=== PATIENT | male | born 1970 | race Caucasian/White ===

== ENCOUNTER 2016-11-30 06:32 | Day surgery (SDC) | payer OTHER ==
[~2016-11-30] VITALS: Ht 188 cm; Wt 108.8 kg
[~2016-11-30 06:32] MED LIST: CARB200 PO; CARB200T16 PO; PROT40TA PO
[2016-11-30] MEDS ORDERED: NS 1000P @30 MLS/HR (KVO) IV SCH (07:00)
[2016-11-30 07:50] VITALS: BP 121/79; PULSE 88; RESP 18; TEMP 98.6; O2SAT 100
[2016-11-30] MEDS ORDERED: IPRA17I INH (08:04)
[2016-11-30] MEDS ORDERED: CARBXR200 PO (08:04)
[2016-11-30] MEDS ORDERED: LISI-515 PO (08:04)
[2016-11-30] MEDS ORDERED: ASPI81TA11 PO (08:04)
[2016-11-30] MEDS ORDERED: VENTAER INH (08:04)
[2016-11-30] MEDS ORDERED: PANT40TA3 PO (08:04)
[2016-11-30] MEDS ORDERED: VENL150C39 PO (08:04)
[2016-11-30] MEDS ORDERED: HEPARIN-NS/PF INJ 500 ML ONE (08:07)
[2016-11-30] MEDS ORDERED: NITROGLYCERIN INJ 5 ML ONE (08:08)
[2016-11-30] MEDS ORDERED: HEPARIN SODIUM - IV 10,000 UNITS/10 ML VIAL ONE (08:08)
[2016-11-30] MEDS ORDERED: MIDAZOLAM HCL 2 MG/2 ML VIAL ONE ×2 (08:08→08:46)
--- NOTE | 2016-11-30 09:28 | CATHPROC ---
[employer] HIS Report Study Information Study Number Admission Scheduled Start Study Start [id number] Nov 30 2016 6:32AM 11/30/2016 Nov 30 2016 8:03AM [place] [facility]iac Catheterization Admit Source Facility Department Other [facility] - Software Administrator Physician and Clinical Staff Initial Abhishek Cohen Line Out Man Nusrat Espinoza RN Line Out Man Julianna Wallace RN Recorder Kaylee Parker,RT(R) Recorder Gerard Thayer RCIS(BS) Scrub Rhona Sow,RATCHET SETTER TECH2 Procedures Performed Procedure Location (Site) Vessel Name Coronary Angiograms LCA Left Coronary Coronary Angiograms RCA Right Coronary L Heart Cath Equipment Time Market Research Interviewer Description Size Mfg Part Number Used/Scraped TRANSDUCER, TRUWAVE [id number] 08:59 CLARK WALLACE * Used W/STOCKCOCK *[id number] *[id number] *[id number] 08:59 [employer] INDUSTRIES PACK, CCL CUSTOM * Used *[id number] 08:59 Codementor SUPPORT, ARTERIAL ADULT 32819 *[id number] Used [id number] 08:59 BioPoly PACER PEN, SKIN DUAL W/ RULER * Used *[id number] BAND, RADIAL COMPRESSION TR [id number] 09:04 [employer] 29CM Used LARGE 29 *[id number] SHEATH, FR6 RADIAL PRELUDE 08:59 [employer] FR 6 [id number] Used EASE 11CM [id number] 08:59 [employer] WIRE, EXCHANGE 260CM 3MMJ 260CM Used *[id number] 08:58 [employer]COMED OMNIPAQUE, 350 MG, 150ML 150ML [id number] Used 08:59 [employer]ED OMNIPAQUE, 350 MG, 150ML 150ML [id number] Used [id number] 08:59 [employer] BLANKET,WARM AIR CCL * Used *[id number] History: Current Medications Medication Dosage/Unit Route Frequency Last Date/Time Taken ASA History: Allergies Allergy Reaction phenytoin FEVER AND RASH methylprednisolone bee venom protein (honey bee) ANAPHYLACTIC SHOCK History: Risk Factors Family History of Hypertension Dyslipidemia Previous NE Previous Heart Failure Premature CAD Yes Yes Yes No No Prior Valve Prior PCI Prior CABG Surgery No No No Cerebrovascular Peripheral Artery Chronic Lung On Dialysis Diabetes Disease Disease Disease No No No Yes No History: Symptoms/Diagnosis Selection Items Chest pain SOB History: Stress Tests Stress or Imaging Studies Performed Yes Standard Exercise Stress Test No Stress Echo No Stress Test SPECT Stress Test SPECT Result Stress Test SPECT Ischemia Risk/Extent Yes Positive Low Stress Test CMR No Cardiac CTA Coronary Calcium Score No No History: Other Current Smoker Method Quit Packs a Day Years Used Pack Years No Cigarettes 4 Years Ago 1 20 20 Labs Hgb (g/dl) Hct (%) WBC (l/cumm) Platelets (thousands) 11.60-17.00 35.00-51.00 4.00-11.00 150.00-450.00 13.7 40.8 4.9 281 Glucose (mg/dl) BUN (mg/dl) Creatinine (mg/dl) BUN:Creatinine (1:x) 74.00-106.00 7.00-18.00 0.50-1.30 10.00-20.00 72 15 1.0 15 Na (meq/l) K (meq/l) 136.00-145.00 3.50-5.10 143 4.3 INR (PTT:PT) 0.90-1.10 0.9 Medication Medication Total Dose (Bolus/Oral) Medication Total Dosage/Unit 1% XYLOCAINE 20 mL FENTANYL 100 mcg HEPARIN 5000 units OXYGEN 2 l/min RADIAL COCKTAIL 5 mL (Bolus) VERSED 4 mg Medications (Bolus/Oral) Medication Time Given Dosage/Unit Administered By Reason FENTANYL 11/30/2016 8:38:39 AM 50 mcg Nusrat Espinoza 50 mcg FENTANYL given in lab by Nusrat Espinoza RN in Left Antecubital via Peripheral IV. VERSED 11/30/2016 8:39:32 AM 2 mg Nusrat Espinoza 2 mg VERSED given in lab by Nusrat Espinoza RN in Left Antecubital via Peripheral IV. 1% XYLOCAINE 11/30/2016 8:45:44 AM 20 mL Abhishek Singletary 20 mL 1% XYLOCAINE given in lab by Abhishek Singletary in Right Radial via Subcutaneous. Ordered by Abhishek Singletary. FENTANYL 11/30/2016 8:46:06 AM 50 mcg Nusrat Espinoza 50 mcg FENTANYL given in lab by Nusrat Espinoza RN in Left Antecubital via Peripheral IV. VERSED 11/30/2016 8:47:11 AM 2 mg Nusrat Espinoza 2 mg VERSED given in lab by Nusrat Espinoza RN in Left Antecubital via Peripheral IV. OXYGEN 11/30/2016 8:53:16 AM 2 l/min Nusrat Espinoza 2 l/min OXYGEN given in lab by Nusrat Espinoza, KONSTANTIN via Nasal. Ordered by Abhishek Singletary. RADIAL COCKTAIL 11/30/2016 8:57:19 AM 5 mL (Bolus) Abhishek Singletary 5 mL (Bolus) RADIAL COCKTAIL given in lab by Abhishek Singletary in Right Radial via Radial. Using [Soluti on Name]. Ordered by Abhishek Singletary. 200 mcg nitro HEPARIN 11/30/2016 8:57:30 AM 5000 units Nusrat Espinoza 5000 units HEPARIN given in lab by Nusrat Espinoza, KONSTANTIN in Left Antecubital via Peripheral IV. Ordered by Abhishek Singletary. Medication (Drip) Medication Time Given Dosage/Unit Concentration/Unit Diluent (ml) Solution IV Solutions 11/30/2016 8:03:26 AM 50 mL (IV) 500 NaCl .9 IV Solutions given in lab by Nusrat Espinoza RN in Left Antecubital via Peripheral IV. Pump/Drip Marquis w using NaCl .9. Initial Case Assessment Cardiovascular HR Rhythm NIBP 87 nsr 121/78 Edema Present Skin color Skin None Normal Warm Circulatory - Right Pulses Dorsalis Pedis Femoral Radial 2 2 1 Scale (0,1,2,3,4,d) Circulatory - Left Pulses Dorsalis Pedis Femoral Radial 2 2 Scale (0,1,2,3,4,d) Neurological State Oriented to time-place- Alert Moves all extremities person Respiration - General Respiration Rate SpO2 (%) (B/min) 12 97 Final Case Assessment Cardiovascular HR Rhythm NIBP Chest Pain 87 nsr 119/75 0 Edema Present Skin color Skin None Normal Warm Circulatory - Right Pulses Dorsalis Pedis Femoral Radial 2 2 1 Scale (0,1,2,3,4,d) Circulatory - Left Pulses Dorsalis Pedis Femoral Radial 2 2 Scale (0,1,2,3,4,d) Neurological State Oriented to time-place- Alert Moves all extremities person Respiration - General Respiration Rate SpO2 (%) (B/min) 12 97 Chronological Log Time Study Chronological Log 8:03:10 Patient arrived via Bed. 8:03:11 Patient Name, D.O.B, / Armband Verified By R.N. 8:03:11 Consent signed by the physician and the patient and verified by the Software Administrator staff. 8:03:16 Pre-op and post- op instructions given; patient acknowledges understanding of instructions. 8:03:18 Allens test performed on the right radial and ulnar artery. 8:03:19 Patient has been NPO for Less than 6Hrs. 8:03:20 Skin Breakdown- 8:03:21 Patient Warmer Placed on the Table. 8:03:25 A # 20 IV was noted in the Antecubital (left). Grade = 0 8:03:26 IV Solutions given in lab by Nusrat Espinoza RN in Left Antecubital via Peripheral IV. Pum p/Drip Flow using NaCl .9. 8:03:27 History and physical on the chart or being dictated. Assessment: Initial Case, HR=87 BPM, Rhythm=nsr, ZFFW=756/78 mmhg, Edema=None, Color=Normal, Sk in = Warm Right Pulses: Terry Ped=2, Femoral=2, Radial=1 8:03:27 Left Pulses: Terry Ped=2, Femoral=2 Neurological: State=Alert, Ox3, ROMAN Respiration: Resp=12 B/min, SpO2=97 % Vitals capture started with the following parameters, Patient=Adult, Interval=5 min, Initial Pr mlmwoy=698 mmHg, 8:13:56 Deflation Rate=5 mmHg, Cuff placed on Left Leg 8:14:36 HR=91 bpm, SKXK=789/73 mmhg, Resp=27 B/min, Pain=2, Saran=10, Dias=2 8:15:38 Right groin and right radial prepped with 2% chlorhexidine, and draped after a 3 min. waiti ng time. 8:16:28 HR=87 bpm, LCAH=948/87 mmhg, Resp=24 B/min, Pain=2, Saran=10, Dias=2 8:18:35 HR=85 bpm, KAJW=811/77 mmhg, SpO2=98.0 %, Resp=16 B/min, Pain=2, Saran=10, Dias=2 8:20:32 HR=92 bpm, RNWZ=282/82 mmhg, SpO2=99.0 %, Resp=17 B/min 8:20:32 Pressure channel 1 zeroed. 8:21:29 Reference ECG taken 8:22:31 HR=88 bpm, WDER=618/82 mmhg, SpO2=99.0 %, Resp=18 B/min, Pain=2, Saran=10, Dias=2 8:24:32 HR=90 bpm, YRQC=849/80 mmhg, BpU8=427.0 %, Resp=20 B/min, Pain=2, Saran=10, Dias=2 8:26:31 HR=90 bpm, NEVJ=625/77 mmhg, Resp=17 B/min, Pain=2, Saran=10, Dias=2 8:28:20 MD paged 8:28:31 HR=90 bpm, MUHI=386/85 mmhg, Resp=21 B/min, Pain=2, Saran=10, Dias=2 8:30:32 HR=89 bpm, QCQK=482/81 mmhg, SpO2=96 %, Resp=25 B/min, Pain=2, Saran=10, Dias=2 8:32:35 HR=87 bpm, IUDO=659/78 mmhg, YqN2=203.0 %, Resp=13 B/min, Pain=2, Saran=10, Dias=2 8:34:32 HR=89 bpm, YSAU=656/86 mmhg, Resp=7 B/min, Pain=2, Saran=10, Dias=2 8:35:17 MD responded 8:36:35 HR=83 bpm, LBYP=007/78 mmhg, SpO2=95.0 %, Resp=19 B/min, Pain=2, Saran=10, Dias=2 8:38:22 MD arrived. 8:38:36 HR=92 bpm, CAWI=376/76 mmhg, SpO2=93.0 %, Resp=14 B/min, Pain=2, Saran=10, Dias=2 8:38:39 50 mcg FENTANYL given in lab by Nusrat Espinoza RN in Left Antecubital via Peripheral IV. 8:39:32 2 mg VERSED given in lab by Nusrat Espinoza, KONSTANTIN in Left Antecubital via Peripheral IV. 8:40:32 HR=86 bpm, MRTE=974/81 mmhg, SpO2=98.0 %, Resp=16 B/min, Pain=2, Saran=10, Dias=2 8:42:31 HR=94 bpm, CADJ=373/80 mmhg, SpO2=95.0 %, Resp=21 B/min, Pain=2, Saran=10, Dias=2 8:44:32 HR=91 bpm, ZHAV=740/78 mmhg, SpO2=96.0 %, Resp=15 B/min, Pain=2, Saran=10, Dias=2 Time Out. Correct patient, correct procedure,correct physician, power injector loaded with contr ast with surgical team 8:45:04 present. Time Out Concurred by MD, individual staff in procedure 8:45:40 Case Start 8:45:44 20 mL 1% XYLOCAINE given in lab by Abhishek Singletary in Right Radial via Subcutaneous. Ordered by Abhishek Singletary. 8:46:06 50 mcg FENTANYL given in lab by Nusrat Espinoza, RN in Left Antecubital via Peripheral IV. 8:46:35 HR=90 bpm, WUAX=236/77 mmhg, Resp=9 B/min, Pain=2, Saran=10, Dias=2 8:47:11 2 mg VERSED given in lab by Nusrat Espinoza, RN in Left Antecubital via Peripheral IV. 8:48:36 HR=91 bpm, KRLS=815/78 mmhg, SpO2=98.0 %, Resp=20 B/min, Pain=2, Saran=10, Dias=2 8:50:37 HR=89 bpm, VWZW=401/76 mmhg, SpO2=85.0 %, Resp=11 B/min, Pain=2, Saran=10, Dias=2 8:52:35 HR=85 bpm, LPRI=326/75 mmhg, SpO2=94.0 %, Resp=13 B/min, Pain=2, Saran=10, Dias=2 8:53:16 2 l/min OXYGEN given in lab by Nusrat Espinoza, RN via Nasal. Ordered by Abhishek Singletary. 8:54:34 HR=88 bpm, ZZSK=151/83 mmhg, SpO2=95.0 %, Resp=17 B/min, Pain=2, Saran=10, Dias=2 8:56:31 Access site was RT Radial Artery. 8:56:35 HR=89 bpm, QRYU=496/79 mmhg, SpO2=95.0 %, Resp=20 B/min, Pain=2, Saran=10, Dias=2 5 mL (Bolus) RADIAL COCKTAIL given in lab by Abhishek Singletary in Right Radial via Radial. Using [S olution Name]. 8:57:19 Ordered by Abhishek Singletary. 200 mcg nitro 5000 units HEPARIN given in lab by Nusrat Espinoza, KONSTANTIN in Left Antecubital via Peripheral IV. Or dered by Hayder, 8:57:30 Abhishek. A JR 5.0 INFINITI CATHETER FR 6 was advanced over a wire. OMNIPAQUE, 350 MG, 150ML 150ML was use d for 8:57:49 injections. 8:58:40 HR=97 bpm, TUCS=978/73 mmhg, SpO2=95.0 %, Resp=19 B/min, Pain=2, Saran=10, Dias=2 Recorded Pressure: LV, HR=97, Condition=Condition 1 8:58:54 (Left Ventricle) LV 111/4/7 Recorded Pressure: LV, Ao, HR=98, Condition=Condition 1 8:59:07 (Left Ventricle) LV 108/6/10, (Aorta) Ao 102/64/88 Recorded Pressure: Ao, HR=96, Condition=Condition 1 8:59:51 (Aorta) Ao 100/76/88 8:59:58 The RCA was injected and visualized at various angles. OMNIPAQUE, 350 MG, 150ML 150ML used . After removing the current catheter a JL 3.5 INFINITI CATHETER FR 6 was advanced over a WIRE, E XCHANGE 260CM 9:00:24 3MMJ 260CM. 9:00:37 HR=96 bpm, ZTFH=006/76 mmhg, SpO2=94.0 %, Resp=16 B/min, Pain=2, Saran=10, Dias=2 9:01:54 The LCA was injected and visualized at various angles. OMNIPAQUE, 350 MG, 150ML 150ML used . 9:02:38 HR=97 bpm, TOVK=078/77 mmhg, SpO2=95.0 %, Resp=19 B/min, Pain=2, Saran=10, Dias=2 9:03:33 Catheter was removed 9:03:49 Case End Radial Compression Device Used. 12 mLs of air placed in BAND, RADIAL COMPRESSION TR LARGE 29 29 CM. Affected 9:04:26 hand 97 % O2 saturation. 9:04:31 Sterile dressing applied to site 9:04:32 No case complications noted. 9:04:36 Cine recording checked. 9::38 Bedside Report will be given. 9:04:40 Contrast Scanned 9:04:40 HR=97 bpm, MQQF=576/67 mmhg, SpO2=98.0 %, Resp=10 B/min, Pain=2, Saran=10, Dias=2 9:06:37 HR=96 bpm, SQKE=482/77 mmhg, SpO2=96.0 %, Resp=17 B/min, Pain=2, Saran=10, Dias=2 9:08:10 A Left Heart Cath was performed. 9:08:38 HR=94 bpm, PIZT=721/75 mmhg, SpO2=95.0 %, Resp=16 B/min, Pain=2, Saran=10, Dias=2 Assessment: Final Case, HR=87 BPM, Rhythm=nsr, ZBEN=763/75 mmhg, Chest Pain=0, Edema=None, [place] r=Normal, Skin = Warm Right Pulses: Terry Ped=2, Femoral=2, Radial=1 9:10:23 Left Pulses: Terry Ped=2, Femoral=2 Neurological: State=Alert, Ox3, ROMAN Respiration: Resp=12 B/min, SpO2=97 % 9:11:05 Patient moved to stretcher End Study - Contrast Media Used In Study Contrast Total Opened (mL) Total Used (mL) Total Wasted (mL) Omnipaque 60 60 0 End Study - Maximum Contrast Load Max Contrast Load (mL) 533.0 End Study - Radiation Exposure Fluoro Time (minutes) 1.7 End Study - Patient Disposition Complications Transferred To Interventional Outcome No Telemetry Bed No attempt made
[2016-11-30] MEDS ORDERED: ATOR10TA15 PO (09:29)
[2016-11-30] MEDS ORDERED: BACITRACIN OINT 0.9 GM PKT TOP ONE (09:30)
[2016-11-30] MEDS ORDERED: oxyCODONE/ACETAMINOPHEN 5 MG/325 MG TAB PO PRN ×2 (09:30)
[2016-11-30] MEDS ORDERED: MISC INFORMATION XX ONE (09:30)
--- NOTE | 2016-11-30 09:57 | MA ---
cc: BELKIS WALSH DATE 11/30/2016 PROCEDURE PERFORMED 1. Fluoroscopy with interpretation. 2. Coronary angiography. 3. Left heart catheterization. METHOD The risks, benefits and alternatives were discussed with the patient. The patient understood and consented to the procedure. The patient was brought to the catheterization lab and placed on the catheterization table. The right wrist was prepped and draped in a sterile fashion. The right wrist was anesthetized with 2% lidocaine. The right radial artery was cannulated and a 6-Thai, 7-cm sheath was placed without difficulty. LEFT HEART CATHETERIZATION A 6-Thai, JR-5 catheter was advanced across the aortic valve without difficulty. Intraoperative hemodynamics measured at 110/12 mmHg. The left ventricular end-diastolic pressure was 12 mmHg. No significant aortic stenosis by transaortic valvular pullback gradient. CORONARY ANGIOGRAPHY Left coronary circulation was selectively engaged with a 6-Thai, JL-3.5 catheter. The right coronary circulation was selectively engaged with a 6-Thai, JR-5 catheter. Angiography findings as follows: 1. Left main coronary artery was angiographically normal. 2. Left anterior descending coronary has a 30% stenosis in the mid-segment, otherwise angiographically normal. 3. Left circumflex has a first obtuse marginal branch with minor luminal irregularities. 4. Right coronary is a dominant vessel giving rise to a posterior descending branch. Right coronary has minor luminal irregularities. CONCLUSIONS 1. Mild nonobstructive coronary disease. 2. Normal left-sided filling pressures. PLAN The patient's symptoms do not appear to be obstructive coronary disease. May consider GI evaluation. Will add atorvastatin in addition to the aspirin. HemoBand applied. Anticipate discharge later today. For right leg pain, we will order an outpatient CRISTIN. MD JAROCHO Castañeda/DOMINGO /9:31 AM /9:48 AM
[2016-11-30] MEDS ORDERED: IOHEXOL 350 MG/ML 100 ML BTL (for Cath Lab) OTHER ONE (14:05)
--- NOTE | 2016-11-30 16:45 | EKG ---
Date Performed: 11/30/2016 Time Performed: 07:27:54 PTAGE: 46 years EKG: Sinus rhythm . Normal ECG PREVIOUS TRACING : 09/17/2014 18.06 Compared to prior tracing no significant change DOCTOR: Simón Jacinto Interpretating Date/Time 11/30/2016 16:44:03
== END 2016-11-30 13:20 | disposition home or self-care (01) ==
LOC: HDIC 06:32 → HCAT 06:32
PROVIDERS: ATTEND Internal Medicine
DX: I25.10 Atherosclerotic heart disease of native coronary artery without angina pectoris (principal); I10 Essential (primary) hypertension; E78.5 Hyperlipidemia, unspecified; Z87.891 Personal history of nicotine dependence
CPT/HCPCS: 86850; 86900; 86901; 93005; 93454; C1769; C1893; J1644; J2250; J3010; Q9967